=== PATIENT | male | born 1940 | race Native Hawaiian/Other Pacific Islander ===

== ENCOUNTER 2016-11-25 20:03 | Emergency (ER) | payer OTHER, MEDICARE ==
[~2016-11-25] VITALS: Ht 172.7 cm; Wt 98.9 kg
[2016-11-25 21:21] VITALS: BP 100/78; TEMP 98.6
== END 2016-11-25 21:27 | disposition home or self-care (01) ==
LOC: ED 20:03
DX: S42.295A Other nondisplaced fracture of upper end of left humerus, initial encounter for closed fracture (principal); W18.09XA Striking against other object with subsequent fall, initial encounter; Y93.89 Activity, other specified; Y92.018 Other place in single-family (private) house as the place of occurrence of the external cause; Y99.8 Other external cause status
CPT/HCPCS: 99283

== ENCOUNTER 2017-01-31 07:37 | Day surgery (SDC) | payer OTHER, MEDICARE ==
[~2017-01-31] VITALS: Ht 182.9 cm; Wt 90.7 kg
== END 2017-01-31 10:30 | disposition home or self-care (01) ==
LOC: OR 07:37
PROC: 0DBM8ZX Excision of Descending Colon, Via Natural or Artificial Opening Endoscopic, Diagnostic (ICD-10-PCS; principal; 2017-01-31)
DX: K64.8 Other hemorrhoids (principal); Z12.11 Encounter for screening for malignant neoplasm of colon; D12.4 Benign neoplasm of descending colon; K63.5 Polyp of colon
CPT/HCPCS: J2001; J2704

== ENCOUNTER 2017-06-18 05:00 | Outpatient (CLI) | payer OTHER, MEDICARE | END 2017-06-18 05:01 | LOC: AMB 05:00 | DX: K62.5 Hemorrhage of anus and rectum (principal) ==

== ENCOUNTER 2018-11-30 14:02 | Inpatient (IN) | payer OTHER, MEDICARE ==
[~2018-11-30] VITALS: Ht 172.7 cm; Wt 88.7 kg
[2018-11-30 15:40] VITALS: BP 136/73; TEMP 97.6; Ht 172.7 cm; Wt 88.7 kg
[2018-11-30 17:16] LABS: PLATELET COUNT 215 K/uL (142-355)
[2018-11-30 17:33] LABS: POTASSIUM 3.7 mmol/L (3.6-5.2)
[2018-11-30 20:00] VITALS: BP 143/71; TEMP 98.1
[2018-12-01 08:00] VITALS: BP 121/71; TEMP 97.8
[2018-12-01 20:00] VITALS: BP 118/65; TEMP 97.9
[2018-12-02 20:00] VITALS: BP 145/73; TEMP 98.2
[2018-12-03 08:07] VITALS: BP 158/72; TEMP 97.9
[2018-12-03 20:29] VITALS: BP 109/58; TEMP 98.2
[2018-12-04 07:30] VITALS: BP 158/64; TEMP 98.1
[2018-12-04 20:00] VITALS: BP 146/68; TEMP 98.7
[2018-12-05 08:07] VITALS: BP 149/69; TEMP 97.8
[2018-12-05 20:00] VITALS: BP 142/74; TEMP 98.2
[2018-12-06 08:00] VITALS: BP 129/59; TEMP 98
[2018-12-06 20:00] VITALS: BP 126/72; TEMP 99
[2018-12-07 08:00] VITALS: BP 117/55; TEMP 98.3
[2018-12-07 20:23] VITALS: BP 154/69; TEMP 98.6
[2018-12-08 08:00] VITALS: BP 136/76; TEMP 97.7
== END 2018-12-08 10:45 | disposition home or self-care (01) | DRG 556 ==
LOC: MED/SURG 14:02
PROVIDERS: Emergency Medicine; ADMIT Internal Medicine
DX: M62.81 Muscle weakness (generalized) (principal); N17.9 Acute kidney failure, unspecified; D64.89 Other specified anemias; K72.90 Hepatic failure, unspecified without coma; E11.9 Type 2 diabetes mellitus without complications; I25.10 Atherosclerotic heart disease of native coronary artery without angina pectoris
CPT/HCPCS: 80053; 81000; 82272; 82728; 83540; 83630; 85027; 87015; 87045; 87324; 87328; 87329; 87449; 87899

== ENCOUNTER 2019-05-24 10:06 | Inpatient (IN) | payer OTHER, MEDICARE ==
[~2019-05-24] VITALS: Ht 170.2 cm; Wt 99.5 kg
[2019-05-24 10:43] LABS: PLATELET COUNT 285 K/uL (142-355)
[2019-05-24 11:29] LABS: POTASSIUM 4.4 mmol/L (3.6-5.2)
[2019-05-24 15:56] VITALS: BP 127/47; TEMP 97.6; Ht 170.2 cm; Wt 99.5 kg
[2019-05-24 16:00] VITALS: BP 127/47; TEMP 97.6
[2019-05-24] MEDS ORDERED: FERROUS SULF325 M1 PO (16:23)
[2019-05-24] MEDS ORDERED: FINASTERIDE5 MG PO (16:24)
[2019-05-24] MEDS ORDERED: GRALISE300 MG PO (16:35)
[2019-05-24] MEDS ORDERED: GLIP10TA55 PO (16:38)
[2019-05-24] MEDS ORDERED: LISITAB PO (16:40)
[2019-05-24] MEDS ORDERED: METO-837 PO (16:41)
[2019-05-24] MEDS ORDERED: OMEPRAZOLE40 MG PO (16:42)
[2019-05-24] MEDS ORDERED: KLOR-CON SPRIN10 MEQ PO (16:43)
[2019-05-24] MEDS ORDERED: CRESTOR5 MG PO (16:46)
[2019-05-24] MEDS ORDERED: TAMS0.4C PO (16:47)
--- NOTE | 2019-05-24 19:50 | NUR ---
PATIENT IS RESTING WITH EYES OPEN WATCHING TV AT THIS TIME. REMAINS AT THE BEDSIDE FOR SUPPORT. IV 20G TO THE RIGHT FOREARM NOTED PATENT AND INTACT INFUISING THE 1ST UNIT OF BLOOD AT 125 ML/HR WITH NO S/S OF REACTION NOTED. WILL CONTINUE TO MONITOR NEEDED.
[2019-05-24 20:00] VITALS: BP 127/59; TEMP 98
--- NOTE | 2019-05-24 21:20 | NUR ---
CALLED REGARDING PATIENT HAVING ITCHING IN BOTH OF HIS EYES THAT STARTED A FEW HOURS AGO WHEN INFUSING FIRST UNIT OF BLOOD. ORDERED A DOSE OF BENADRYL 50 MG PO X1.
--- NOTE | 2019-05-24 22:30 | NUR ---
CALLED REGARDING PATIENT GETTING HIS HOME MEDS. HOME MEDICATION CONTINUED AT THIS TIME.
[2019-05-24 23:51] VITALS: BP 120/57; TEMP 98.1
[2019-05-25 03:56] VITALS: BP 117/54; TEMP 97.6
[2019-05-25 08:00] VITALS: BP 123/61; TEMP 97.7
== END 2019-05-25 12:15 | disposition home or self-care (01) | DRG 812 ==
LOC: LABW 10:06 → MED/SURG 14:41
PROVIDERS: ADMIT Internal Medicine
PROC: 30233N1 Transfusion of Nonautologous Red Blood Cells into Peripheral Vein, Percutaneous Approach (ICD-10-PCS; principal; 2019-05-24)
PROC: 30233N1 Transfusion of Nonautologous Red Blood Cells into Peripheral Vein, Percutaneous Approach (ICD-10-PCS; 2019-05-25)
DX: D50.0 Iron deficiency anemia secondary to blood loss (chronic) (principal); K92.2 Gastrointestinal hemorrhage, unspecified; I10 Essential (primary) hypertension; I25.10 Atherosclerotic heart disease of native coronary artery without angina pectoris; Z86.73 Personal history of transient ischemic attack (TIA), and cerebral infarction without residual deficits; I73.89 Other specified peripheral vascular diseases; R62.7 Adult failure to thrive; R53.1 Weakness; N40.0 Benign prostatic hyperplasia without lower urinary tract symptoms; E78.00 Pure hypercholesterolemia, unspecified; K21.9 Gastro-esophageal reflux disease without esophagitis; E11.9 Type 2 diabetes mellitus without complications
CPT/HCPCS: 36415; 80048; 82728; 83540; 85014; 85018; 85027; 86850; 86900; 86901; 86922; J1940; P9016

== ENCOUNTER 2019-06-11 09:46 | Outpatient (CLI) | payer OTHER, MEDICARE ==
[~2019-06-11 09:46] MED LIST: CRESTOR5 MG PO; FERROUS SULF325 M1 PO; FINASTERIDE5 MG PO; GLIP10TA55 PO; GRALISE300 MG PO; KLOR-CON SPRIN10 MEQ PO; LISITAB PO; METO-837 PO; OMEPRAZOLE40 MG PO; TAMS0.4C PO
[2019-06-11 10:10] LABS: PLATELET COUNT 290 K/uL (142-355)
== END 2019-06-11 23:59 ==
LOC: LABW 09:46
PROVIDERS: Internal Medicine
DX: D50.0 Iron deficiency anemia secondary to blood loss (chronic) (principal); K62.5 Hemorrhage of anus and rectum
CPT/HCPCS: 36415; 85027

== ENCOUNTER 2019-07-19 10:16 | Inpatient (IN) | payer OTHER, MEDICARE ==
[~2019-07-19] VITALS: Ht 172.7 cm; Wt 96.8 kg
[2019-07-19 10:52] LABS: PLATELET COUNT 267 K/uL (142-355)
[2019-07-19 14:25] VITALS: BP 117/42; TEMP 97.9; Ht 172.7 cm; Wt 96.8 kg
[2019-07-19 20:00] VITALS: BP 110/46; TEMP 98.2
[2019-07-19 23:51] VITALS: BP 130/49; TEMP 97.8
[2019-07-20 03:57] VITALS: BP 130/53; TEMP 97.8
[2019-07-20 08:00] VITALS: BP 138/69; TEMP 97.6
[2019-07-20 12:30] VITALS: BP 117/66; TEMP 97.6
== END 2019-07-20 15:45 | disposition home or self-care (01) | DRG 378 ==
LOC: LABW 10:16 → MED/SURG 12:30
PROVIDERS: ADMIT Internal Medicine
PROC: 30253N1 (ICD-10-PCS; principal; 2019-07-19)
PROC: 30253N1 (ICD-10-PCS; 2019-07-20)
DX: K92.2 Gastrointestinal hemorrhage, unspecified (principal); D62 Acute posthemorrhagic anemia; I10 Essential (primary) hypertension; Z86.73 Personal history of transient ischemic attack (TIA), and cerebral infarction without residual deficits; I25.10 Atherosclerotic heart disease of native coronary artery without angina pectoris; E11.9 Type 2 diabetes mellitus without complications; N40.0 Benign prostatic hyperplasia without lower urinary tract symptoms
CPT/HCPCS: 36415; 85014; 85018; 85027; 86850; 86900; 86901; 86922; J1940; P9016

== ENCOUNTER 2019-12-03 10:46 | Inpatient (IN) | payer OTHER, MEDICARE ==
[2019-12-03] VITALS (15 sets, daily range): BP systolic 92–126; BP diastolic 42–59; TEMP 97.6–98.7; Ht 172.7 cm; Wt 95.4 kg
[~2019-12-03] VITALS: Ht 172.7 cm; Wt 95.4 kg
[2019-12-03 13:14] LABS: PLATELET COUNT 321 K/uL (142-355)
[2019-12-03 13:20] LABS: POTASSIUM 4.4 mmol/L (3.6-5.2)
[2019-12-04] VITALS (12 sets, daily range): BP systolic 100–118; BP diastolic 47–72; TEMP 97.4–98.3
== END 2019-12-04 11:47 | disposition home or self-care (01) | DRG 379 ==
LOC: ED 10:46 → MED/SURG 15:10
PROVIDERS: ADMIT Family Medicine
PROC: 30233N1 Transfusion of Nonautologous Red Blood Cells into Peripheral Vein, Percutaneous Approach (ICD-10-PCS; principal; 2019-12-03)
PROC: 30233N1 Transfusion of Nonautologous Red Blood Cells into Peripheral Vein, Percutaneous Approach (ICD-10-PCS; 2019-12-04)
DX: K92.2 Gastrointestinal hemorrhage, unspecified (principal); R53.1 Weakness; D64.89 Other specified anemias; I25.10 Atherosclerotic heart disease of native coronary artery without angina pectoris; E11.9 Type 2 diabetes mellitus without complications; I10 Essential (primary) hypertension
CPT/HCPCS: 80053; 82272; 82550; 82728; 83540; 84484; 85014; 85018; 85027; 86850; 86900; 86901; 86922; 93005; 99283; J1940; J3490; P9016

== ENCOUNTER 2019-12-13 10:45 | Outpatient (CLI) | payer OTHER, MEDICARE | END 2019-12-13 19:42 | disposition home or self-care (01) | LOC: LAB 10:45 | DX: D50.0 Iron deficiency anemia secondary to blood loss (chronic) (principal) | CPT/HCPCS: 85014; 85018 ==

== ENCOUNTER 2019-12-16 09:06 | Emergency (ER) | payer OTHER, MEDICARE ==
[~2019-12-16] VITALS: Ht 172.7 cm; Wt 95.3 kg
[2019-12-16 09:25] VITALS: BP 110/33; TEMP 98.2
== END 2019-12-16 11:01 | disposition home or self-care (01) ==
LOC: ED 09:06
DX: D64.89 Other specified anemias (principal)
CPT/HCPCS: 36415; 85014; 85018; 99281; 99283

== ENCOUNTER 2020-05-29 13:08 | Outpatient (CLI) | payer OTHER, MEDICARE ==
[2020-05-29 13:49] LABS: PLATELET COUNT 289 K/uL (142-355)
== END 2020-05-29 19:33 | disposition home or self-care (01) ==
LOC: LAB 13:08
PROVIDERS: Internal Medicine
DX: D50.8 Other iron deficiency anemias (principal); L29.8 Other pruritus
CPT/HCPCS: 84403; 85027

== ENCOUNTER 2020-06-26 13:22 | Outpatient (CLI) | payer OTHER, MEDICARE ==
[2020-06-26 13:56] LABS: PLATELET COUNT 243 K/uL (142-355)
== END 2020-06-26 23:16 | disposition home or self-care (01) ==
LOC: LAB 13:22
PROVIDERS: Internal Medicine
DX: Z01.818 Encounter for other preprocedural examination (principal); D50.8 Other iron deficiency anemias; I25.10 Atherosclerotic heart disease of native coronary artery without angina pectoris
CPT/HCPCS: 80053; 85027

== ENCOUNTER 2020-10-30 13:43 | Outpatient (CLI) | payer OTHER, MEDICARE ==
[2020-10-30 14:14] LABS: PLATELET COUNT 239 K/uL (142-355)
[2020-10-30 15:37] LABS: POTASSIUM 4.4 mmol/L (3.6-5.2)
== END 2020-10-30 19:05 | disposition home or self-care (01) ==
LOC: LAB 13:43
PROVIDERS: ATTEND Nurse Practitioner Family
DX: D50.0 Iron deficiency anemia secondary to blood loss (chronic) (principal); K62.5 Hemorrhage of anus and rectum; I25.10 Atherosclerotic heart disease of native coronary artery without angina pectoris; R53.1 Weakness; I73.89 Other specified peripheral vascular diseases; E11.9 Type 2 diabetes mellitus without complications; E53.8 Deficiency of other specified B group vitamins; E55.9 Vitamin D deficiency, unspecified
CPT/HCPCS: 36415; 80053; 80061; 82306; 82607; 83036; 84439; 84443; 84481; 85027

== ENCOUNTER 2020-11-06 09:12 | Observation (INO) | payer OTHER, MEDICARE ==
[2020-11-06] VITALS (18 sets, daily range): BP systolic 12–144; BP diastolic 39–66; TEMP 97.5–98.6; Ht 172.7 cm; Wt 92.2 kg
[~2020-11-06] VITALS: Ht 172.7 cm; Wt 92.2 kg
[2020-11-06 10:26] LABS: PLATELET COUNT 254 K/uL (142-355)
[2020-11-06] MEDS ORDERED: CLARITIN10 M1 PO (14:56)
[2020-11-06] MEDS ORDERED: VISION FORMULA PO (15:03)
[2020-11-06] MEDS ORDERED: PROSTATE SUPPORT PO (15:05)
[2020-11-06] MEDS ORDERED: PREVAGEN EXTRA20 MG PO (15:05)
[2020-11-06] MEDS ORDERED: SAW PALMETTO450 MG PO (15:06)
[2020-11-06] MEDS ORDERED: CENTRUM SILVER1 TAB PO (15:07)
[2020-11-07] VITALS: BP 123/66; TEMP 97.9
[2020-11-07 00:13] VITALS: BP 126/56; TEMP 98
[2020-11-07 01:07] VITALS: BP 127/62; TEMP 97.6
[2020-11-07 03:44] VITALS: BP 124/70; TEMP 98
[2020-11-07 08:00] VITALS: BP 137/67; TEMP 98.3
== END 2020-11-07 08:40 | disposition home or self-care (01) ==
LOC: MED/SURG 09:12
PROVIDERS: ADMIT Internal Medicine Endocrinology, Diabetes & Metabolism; ATTEND Internal Medicine Endocrinology, Diabetes & Metabolism
PROC: 30233N1 Transfusion of Nonautologous Red Blood Cells into Peripheral Vein, Percutaneous Approach (ICD-10-PCS; principal; 2020-11-06)
DX: D64.89 Other specified anemias (principal); R53.1 Weakness; I25.10 Atherosclerotic heart disease of native coronary artery without angina pectoris; Z86.73 Personal history of transient ischemic attack (TIA), and cerebral infarction without residual deficits; E11.9 Type 2 diabetes mellitus without complications; I10 Essential (primary) hypertension
CPT/HCPCS: 36415; 36430; 85014; 85018; 85027; 86850; 86900; 86901; 86922; 87070; 87077; 87185; 87186; 96374; 96375; 99220; G0378; G0379; J1200; J1940; P9016

== ENCOUNTER 2020-11-13 14:25 | Outpatient (CLI) | payer OTHER, MEDICARE ==
[~2020-11-13 14:25] MED LIST changes: +CENTRUM SILVER1 TAB PO; +CLARITIN10 M1 PO; +PREVAGEN EXTRA20 MG PO; +PROSTATE SUPPORT PO; +SAW PALMETTO450 MG PO; +VISION FORMULA PO
[2020-11-13 14:48] LABS: PLATELET COUNT 266 K/uL (142-355)
== END 2020-11-13 20:00 | disposition home or self-care (01) ==
LOC: LAB 14:25
PROVIDERS: ATTEND Internal Medicine
DX: D50.0 Iron deficiency anemia secondary to blood loss (chronic) (principal)
CPT/HCPCS: 85027

== ENCOUNTER 2021-01-06 07:36 | Day surgery (SDC) | payer OTHER, MEDICARE ==
[2020-12-11 10:26] LABS: PLATELET COUNT 281 K/uL (142-355)
== END 2021-01-06 10:30 ==
LOC: OR 07:36
PROVIDERS: ATTEND Student in an Organized Health Care Education/Training Program
DX: Z53.9 Procedure and treatment not carried out, unspecified reason (principal); K92.1 Melena; K64.9 Unspecified hemorrhoids; Z20.828 Contact with and (suspected) exposure to other viral communicable diseases
CPT/HCPCS: 80053; 85027; 87635; J2704; U0003

== ENCOUNTER 2021-01-18 13:37 | Outpatient (CLI) | payer OTHER, MEDICARE ==
[2021-01-18 14:02] LABS: PLATELET COUNT 239 K/uL (142-355)
== END 2021-01-18 21:39 | disposition home or self-care (01) ==
LOC: LAB 13:37
PROVIDERS: ATTEND Internal Medicine
DX: D50.0 Iron deficiency anemia secondary to blood loss (chronic) (principal); K62.5 Hemorrhage of anus and rectum
CPT/HCPCS: 85027

== ENCOUNTER 2021-02-12 14:33 | Inpatient (IN) | payer OTHER, MEDICARE ==
[~2021-02-12] VITALS: Ht 172.7 cm; Wt 90.7 kg
[2021-02-12 15:38] VITALS: BP 99/48; TEMP 98.3; Ht 172.7 cm; Wt 90.7 kg
[2021-02-12 20:24] VITALS: BP 102/42; TEMP 98.2
[2021-02-12 20:27] VITALS: BP 118/42; TEMP 98
[2021-02-12 20:47] VITALS: BP 102/42; TEMP 98
[2021-02-12 21:42] VITALS: BP 122/66; TEMP 98.4
[2021-02-12 23:46] VITALS: BP 120/99; TEMP 97.6
[2021-02-13] VITALS (13 sets, daily range): BP systolic 101–128; BP diastolic 48–70; TEMP 97.4–98.4
== END 2021-02-13 12:05 | disposition home or self-care (01) | DRG 812 ==
LOC: MED/SURG 14:33
PROVIDERS: ADMIT Internal Medicine Endocrinology, Diabetes & Metabolism; ATTEND Internal Medicine Endocrinology, Diabetes & Metabolism
PROC: 30233N1 Transfusion of Nonautologous Red Blood Cells into Peripheral Vein, Percutaneous Approach (ICD-10-PCS; principal; 2021-02-12)
PROC: 30233N1 Transfusion of Nonautologous Red Blood Cells into Peripheral Vein, Percutaneous Approach (ICD-10-PCS; 2021-02-13)
DX: D50.0 Iron deficiency anemia secondary to blood loss (chronic) (principal); K92.2 Gastrointestinal hemorrhage, unspecified; Z86.73 Personal history of transient ischemic attack (TIA), and cerebral infarction without residual deficits; E11.9 Type 2 diabetes mellitus without complications; I10 Essential (primary) hypertension; I25.10 Atherosclerotic heart disease of native coronary artery without angina pectoris; R53.1 Weakness
CPT/HCPCS: 85014; 85018; 86850; 86900; 86901; 86922; 87635; J1940; P9016; U0003

== ENCOUNTER 2021-02-22 07:45 | Outpatient (CLI) | payer OTHER, MEDICARE | END 2021-02-22 19:12 | disposition home or self-care (01) | LOC: NM 07:45 | PROVIDERS: ATTEND Internal Medicine | DX: K62.5 Hemorrhage of anus and rectum (principal); D50.0 Iron deficiency anemia secondary to blood loss (chronic) | CPT/HCPCS: A9512 ==

== ENCOUNTER 2021-03-03 12:14 | Outpatient (CLI) | payer OTHER, MEDICARE ==
[2021-03-03 12:25] LABS: PLATELET COUNT 241 K/uL (142-355)
== END 2021-03-03 21:11 | disposition home or self-care (01) ==
LOC: LAB 12:14
PROVIDERS: ATTEND Internal Medicine
DX: D50.0 Iron deficiency anemia secondary to blood loss (chronic) (principal); K62.5 Hemorrhage of anus and rectum
CPT/HCPCS: 85027

== ENCOUNTER 2021-03-11 07:42 | Day surgery (SDC) | payer OTHER, MEDICARE ==
[~2021-03-11] VITALS: Ht 30.5 cm; Wt 0.5 kg
[2021-03-11 08:36] LABS: POTASSIUM 3.6 mmol/L (3.6-5.2)
== END 2021-03-11 09:52 | disposition home or self-care (01) ==
LOC: OR 07:42
PROVIDERS: ATTEND Student in an Organized Health Care Education/Training Program
PROC: 06LY3CC Occlusion of Hemorrhoidal Plexus with Extraluminal Device, Percutaneous Approach (ICD-10-PCS; principal; 2021-03-11)
DX: K64.8 Other hemorrhoids (principal); K92.1 Melena; D64.89 Other specified anemias
CPT/HCPCS: 80053; J2001; J2704

== ENCOUNTER 2021-03-30 14:36 | Outpatient (CLI) | payer OTHER, MEDICARE ==
[2021-03-30 14:50] LABS: PLATELET COUNT 266 K/uL (142-355)
== END 2021-03-30 22:46 | disposition home or self-care (01) ==
LOC: LAB 14:36
PROVIDERS: ATTEND Internal Medicine
DX: D50.0 Iron deficiency anemia secondary to blood loss (chronic) (principal); K62.5 Hemorrhage of anus and rectum
CPT/HCPCS: 85027

== ENCOUNTER 2021-04-01 08:02 | Outpatient (CLI) | payer OTHER, MEDICARE ==
[~2021-04-01] VITALS: Ht 172.7 cm; Wt 97.5 kg
== END 2021-04-01 22:39 | disposition home or self-care (01) ==
LOC: INF 08:02
PROVIDERS: ATTEND Internal Medicine
DX: D50.0 Iron deficiency anemia secondary to blood loss (chronic) (principal)
CPT/HCPCS: 86850; 86900; 86901; 86922; J1940

== ENCOUNTER 2021-11-30 15:02 | Outpatient (CLI) | payer OTHER, MEDICARE ==
[2021-11-30 15:56] LABS: PLATELET COUNT 330 K/uL (142-355)
[2021-11-30 16:42] LABS: POTASSIUM 4.5 mmol/L (3.6-5.2)
== END 2021-11-30 19:22 | disposition home or self-care (01) ==
LOC: LAB 15:02
PROVIDERS: ATTEND Internal Medicine
DX: I10 Essential (primary) hypertension (principal); D64.89 Other specified anemias; Z79.84 Long term (current) use of oral hypoglycemic drugs
CPT/HCPCS: 80053; 85027

== ENCOUNTER 2022-03-25 11:15 | Outpatient (CLI) | payer OTHER, MEDICARE ==
[2022-03-25 11:55] LABS: POTASSIUM 4.3 mmol/L (3.6-5.2)
[2022-03-25 12:28] LABS: PLATELET COUNT 185 K/uL (142-355)
== END 2022-03-25 19:21 | disposition home or self-care (01) ==
LOC: LABW 11:15
PROVIDERS: ATTEND Surgery
DX: K64.3 Fourth degree hemorrhoids (principal)
CPT/HCPCS: 36415; 80053; 85027; 93005